=== PATIENT | male | born 1990 | race African-American/Black ===

== ENCOUNTER 2016-11-21 17:14 | Emergency (ER) | payer SELFPAY ==
[2016-11-21] MEDS ORDERED: IBUPROFEN 800 MG TABLET PO ONE (17:47)
--- NOTE | 2016-11-21 17:48 | ER Document Report ---
ED Medical Screen (RME) - General Chief Complaint: Laceration Stated Complaint: FINGER PAIN Time seen by provider: 17:47 Mode of Arrival: Ambulatory Information source: Patient Notes: 26-year-old male cut his right palmarto lateral proximal fifth finger middle phalanx on sheet metal today at 4:00. Tetanus is current I have greeted and performed a rapid initial assessment of this patient. A comprehensive ED assessment, evaluation of the patient, analysis of test results , and completion of the medical decision making process will be conducted by additional ED providers. TRAVEL OUTSIDE OF THE [place] IN LAST 30 DAYS: No - Related Data Allergies/Adverse Reactions: No Known Allergies Allergy (Unverified 12/10/14 12:14) Past Medical History - Immunizations Hx Diphtheria, Pertussis, Tetanus Vaccination: Yes Physical Exam - Vital signs Vitals: Temp Pulse Resp BP Pulse Ox 98.0 F 79 16 130/83 H 100 11/21/16 17:18 11/21/16 17:18 11/21/16 17:18 11/21/16 17:18 11/21/16 17:18 Course - Vital Signs Vital signs: Temp Pulse Resp BP Pulse Ox 98.0 F 79 16 130/83 H 100 11/21/16 17:18 11/21/16 17:18 11/21/16 17:18 11/21/16 17:18 11/21/16 17:18
[2016-11-21] MEDS ORDERED: BUPIVACAINE HCL 0.5 % INJ/PF 30 ML SDV INJ ONE (18:59)
[2016-11-21] MEDS ORDERED: CEPHALEXIN 500 MG CAPSULE PO ONE (19:00)
[2016-11-21] MEDS ORDERED: DIPH/PERTUSS(ACELL)/TETANUS VAC/PF 0.5 ML SYR (>=10YO) IM ONE (19:19)
--- NOTE | 2016-11-21 19:19 | ER Document Report ---
ED General - General Chief Complaint: Laceration Stated Complaint: FINGER PAIN Mode of Arrival: Ambulatory Information source: Patient Notes: 26-year-old male presents with complaints of laceration to the right hand fifth digit on the medial aspect just prior to arrival wide metal piece. Patient notes tenderness is not up-to-date. She does note numbness on the lateral aspect with lacerations located TRAVEL OUTSIDE OF THE [place] IN LAST 30 DAYS: No - HPI Onset: Just prior to arrival Onset/Duration: Sudden Quality of pain: Achy Severity: Mild Pain Level: 1 Associated symptoms: Other Exacerbated by: Movement Relieved by: Denies Similar symptoms previously: No Recently seen / treated by doctor: No - Related Data Allergies/Adverse Reactions: No Known Allergies Allergy (Unverified 12/10/14 12:14) Past Medical History - General Information source: Patient - Social History Smoking Status: Current Every Day Smoker Cigarette use (# per day): Yes Chew tobacco use (# tins/day): No Smoking Education Provided: No Family History: Reviewed & Not Pertinent Patient has suicidal ideation: No Patient has homicidal ideation: No Renal/ Medical History: Denies: Hx Peritoneal Dialysis - Immunizations Hx Diphtheria, Pertussis, Tetanus Vaccination: Yes Review of Systems - Review of Systems Notes: REVIEW OF SYSTEMS: CONSTITUTIONAL : Denies fever, chills, or sweats. Denies recent illness. EENT: Denies eye, ear, throat, or mouth pain or symptoms. Denies nasal or sinus congestion or discharge. Denies throat, tongue, or mouth swelling or difficulty swallowing. CARDIOVASCULAR: Denies chest pain. Denies palpitations or racing or irregular heart beat. Denies ankle edema. RESPIRATORY: Denies cough, cold, or chest congestion. Denies shortness of breath, difficulty breathing, or wheezing. GASTROINTESTINAL: Denies abdominal pain or distention. Denies nausea, vomiting , or diarrhea. Denies blood in vomitus, stools, or per rectum. Denies black, tarry stools. Denies constipation. GENITOURINARY: Denies difficulty urinating, painful urination, burning, frequency, blood in urine, or discharge. MUSCULOSKELETAL: Denies back or neck pain or stiffness. Denies joint pain or swelling. SKIN: Finger laceration HEMATOLOGIC : Denies easy bruising or bleeding. LYMPHATIC: Denies swollen, enlarged glands. NEUROLOGICAL: Denies confusion or altered mental status. Denies passing out or loss of consciousness. Denies dizziness or lightheadedness. Denies headache. Denies weakness or paralysis or loss of use of either side. Denies problems with gait or speech. Denies sensory loss, numbness, or tingling. Denies seizures. PSYCHIATRIC: Denies anxiety or stress. Denies depression, suicidal ideation, or homicidal ideation. ALL OTHER SYSTEMS REVIEWED AND NEGATIVE. Dictation was performed using [employer] voice recognition software PHYSICAL EXAMINATION: GENERAL: Well-appearing, well-nourished and in no acute distress. HEAD: Atraumatic, normocephalic. EYES: Pupils equal round and reactive to light, extraocular movements intact, sclera anicteric, conjunctiva are normal. ENT: Nares patent, oropharynx clear without exudates. Moist mucous membranes. NECK: Normal range of motion, supple without lymphadenopathy LUNGS: Breath sounds clear to auscultation bilaterally and equal. No wheezes rales or rhonchi. HEART: Regular rate and rhythm without murmurs ABDOMEN: Soft, nontender, nondistended abdomen. No guarding, no rebound. No masses appreciated. Musculoskeletal: Normal range of motion, no pitting or edema. No cyanosis. NEUROLOGICAL: Cranial nerves grossly intact. Normal speech, normal gait. Normal sensory, motor exams except for mild paresthesia on the medial aspect of the fifth digit PSYCH: Normal mood, normal affect. SKIN: Laceration noted of the medial aspect of the fifth digit at the proximal phalanx with no joint involvement patient is able to flex and extend at DIP and PIP Physical Exam - Vital signs Vitals: Temp Pulse Resp BP Pulse Ox 98.0 F 79 16 130/83 H 100 11/21/16 17:18 11/21/16 17:18 11/21/16 17:18 11/21/16 17:18 11/21/16 17:18 Course - Re-evaluation Re-evalutation: 11/21/16 21:53 area was anesthetized cleansed extensively, patient sutures were placed tetanus was updated patient was started on antibiotics and is otherwise stable for discharge After performing a Medical Screening Examination, I estimate there is LOW risk for OPEN FRACTURE, COMPARTMENT SYNDROME, TENDON RUPTURE, ACUTE NEUROVASCULAR INJURY, or RETAINED FOREIGN BODY, thus I consider the discharge disposition reasonable. Also, there is no evidence or peritonitis, sepsis, or toxicity. The patient and I have discussed the diagnosis and risks, and we agree with discharging home with close follow-up with the understanding that symptoms and presentations can change. We also discussed returning to the Emergency Department immediately if new or worsening symptoms occur. We have discussed the symptoms which are most concerning (e.g., changing or worsening pain, fever , numbness, weakness, cool or painful digits) that necessitate immediate return. 11/21/16 21:56 - Vital Signs Vital signs: Temp Pulse Resp BP Pulse Ox 98.0 F 79 16 130/83 H 100 11/21/16 17:18 11/21/16 17:18 11/21/16 17:18 11/21/16 17:18 11/21/16 17:18 Procedures - Immobilization Right 5th digit Time completed: 19:47 Pre-Proc Neuro Vasc Exam: Normal Immobilizer type: Finger splint (Static) Performed by: PCT Post-Proc Neuro Vasc Exam: Normal Alignment checked and good: Yes - Laceration/Wound Repair Right 5th digit Time completed: 19:00 Wound length (cm): 2 Wound's Depth, Shape: Superficial, Irregular, Flap Laceration pre-procedure: Sterile PPE donned, Sterile drapes applied, Shur- Clens applied Anesthetic type: 0.5% Bupivacaine Volume Anesthetic (mLs): 10 Wound explored: No foreign body removed, Contaminated Irrigated w/ Saline (mLs): 1,500 Wound Debrided: Extensive Wound Repaired With: Sutures Suture Size/Type: 5:0, Ethilon Number of Sutures: 4 Layer Closure?: No Post-procedure wound care: Sterile dressing applied, Splint applied Post-procedure NV exam normal: Yes Complications: No - Additional Procedures digital nerve block Time performed: 19:18 - using 10 cc of sensorciane .5% without epi with complete resolution of pain of the finger Discharge - Discharge Clinical Impression: Paresthesia Finger laceration Qualifiers: Encounter type: initial encounter Qualified Code(s): S61.219A - Laceration without foreign body of unspecified finger without damage to nail, initial encounter Condition: Stable Disposition: HOME, SELF-CARE Instructions: Laceration Care ([facility]) Additional Instructions: Follow-up in 7-10 days for removal of sutures or sooner if there is any other concerns please check for any signs of infection Prescriptions: Cephalexin Monohydrate [Keflex 500 mg Capsule] 500 mg PO QID #40 capsule Referrals: LYNDSAY RODARTE DO [ACTIVE STAFF] - Follow up in 3-5 days
[2016-11-21 22:06] VITALS: BP 134/94
== END 2016-11-21 20:00 | disposition home or self-care (01) ==
LOC: ER 17:14
PROC: 0HQFXZZ Repair Right Hand Skin, External Approach (ICD-10-PCS; principal; 2016-11-21)
DX: S61.210A Laceration without foreign body of right index finger without damage to nail, initial encounter (principal); W45.8XXA Other foreign body or object entering through skin, initial encounter; Y99.0 Civilian activity done for income or pay; R20.0 Anesthesia of skin; Z23 Encounter for immunization; F17.210 Nicotine dependence, cigarettes, uncomplicated
CPT/HCPCS: 90471; 99282

== ENCOUNTER 2020-04-16 23:11 | Emergency (ER) | payer SELFPAY ==
[2020-04-16] MEDS ORDERED: HYDROMORPHONE HCL INJ/PF 2 MG/ML AMPULE IV ONE (23:19)
[2020-04-16] MEDS ORDERED: CEFAZOLIN 2 GM/D5W RTU 2 GM/50 ML RTUPB IV ONE (23:20)
[2020-04-16] MEDS ORDERED: ONDANSETRON HCL INJ/PF 4 MG/2 ML SDV IV ONE (23:20)
[2020-04-16] MEDS ORDERED: LEVOFLOXACIN 750 MG TABLET PO ONE (23:21)
[2020-04-16] MEDS ORDERED: LIDOCAINE 2% INJ (20 MG/ML) 20 ML MDV INJ ONE (23:22)
--- NOTE | 2020-04-17 00:29 | RADIOLOGY REPORT (SQ) ---
CLINICAL INDICATION: foreign body. . TECHNIQUE: 2 view(s) were obtained of the left foot. COMPARISON: None. FINDINGS: No acute displaced fracture is identified of the foot. Alignment appears anatomic. Joint spaces are within normal limits for age. A radiopaque saw blade is identified in the dorsum of the foot overlying the first and second digit and second and third metatarsal heads. This does not convincingly traverse bone.. IMPRESSION: No evidence of acute displaced fracture of the foot. Foreign body, as described
[2020-04-17] MEDS ORDERED: HYDROCODONE/ACETAMINOPHEN 5-325 MG (6 TAB/ER DISP) PO PRN (00:31)
[2020-04-17 00:55] VITALS: BP 120/68
--- NOTE | 2020-04-17 04:00 | ER Document Report ---
Entered by CICI SANTIAGO SCRIBE 04/16/20 [id number] Acting as scribe for:COURTNEY RIVERA IV, MD ED Extremity Problem, Lower - General Chief Complaint: Foot Injury Stated Complaint: FOOT TRAUMA Primary Care Provider: RONDA SULLIVAN MD [ACTIVE STAFF] - 04/19/20 (Call Dr. Sullivan on 04/19/20 to arrange follow up appointment ) Mode of Arrival: Medic Information source: Patient, Emergency Med Personnel Notes: This 30 year old male patient brought in by EMS from home presents to the ED today with complaints of left foot injury that occurred just prior to arrival. Patient states that he was cutting wood with a saw and after he was done, he set it down and accidentally kicked it with his left foot, causing the blade to become stuck between his 1st and 2nd toe. He mentions that he was wearing water shoes at the time. EMS reports that the blade is approximately 1" deep at an angle between his toes and that the blade was stabilized with dressing at the scene. Patient reports 5/5 pain at this time, but denies any numbness or tingling in his toes. Tetanus is UTD within x3 years per patient. TRAVEL OUTSIDE OF THE [place] IN LAST 30 DAYS: No - Related Data Allergies/Adverse Reactions: No Known Allergies Allergy (Unverified 12/10/14 12:14) Past Medical History - General Information source: Patient - Social History Smoking Status: Unknown if Ever Smoked Smoking Education Provided: No Family History: Reviewed & Not Pertinent Patient has suicidal ideation: No Patient has homicidal ideation: No - Immunizations Hx Diphtheria, Pertussis, Tetanus Vaccination: Yes Review of Systems - Review of Systems Constitutional: No symptoms reported EENT: No symptoms reported Cardiovascular: No symptoms reported Respiratory: No symptoms reported Gastrointestinal: No symptoms reported Genitourinary: No symptoms reported Male Genitourinary: No symptoms reported Musculoskeletal: See HPI Skin: No symptoms reported Hematologic/Lymphatic: No symptoms reported Neurological/Psychological: See HPI. denies: Numbness, Tingling -: Yes All other systems reviewed and negative Physical Exam - Vital signs Vitals: Temp 98.3 F 04/16/20 23:17 - General General appearance: Alert In distress: None - HEENT Head: Normocephalic, Atraumatic Eyes: Normal Pupils: PERRL - Respiratory Respiratory status: No respiratory distress Chest status: Nontender Breath sounds: Normal Chest palpation: Normal - Cardiovascular Rhythm: Regular Heart sounds: Normal auscultation Murmur: No Friction rub: No Gallop: None auscultated Normal capillary refill: Yes - < 2 seconds in all digits of left foot - Abdominal Inspection: Normal Distension: No distension Bowel sounds: Normal Tenderness: Nontender - Abdomen soft Organomegaly: No organomegaly - Back Back: Normal, Nontender - Extremities General upper extremity: Normal inspection Foot: Other - Sawzall blade inserted proximally at the base of the 2nd toe of the left foot. Minimal bleeding with removal of blade. Sensation intact. Active ROM in all toes of left foot. - Neurological Neuro grossly intact: Yes Orientation: AAOx4 Colleen Coma Scale Eye Opening: Spontaneous [place]leen Coma Scale Verbal: Oriented [place]leen Coma Scale Motor: Obeys Commands [place] Coma Scale Total: 15 - Psychological Associated symptoms: Normal affect, Normal mood - Skin Skin Temperature: Warm Skin Moisture: Dry Skin Color: Normal Course - Re-evaluation Re-evalutation: 04/17/20 00:25 Results of ED MSE discussed with patient. Plan for follow-up discussed with patient. Plan of care discussed with patient. All questions were answered prior to discharge. Emergency signs and symptoms, reasons to return to emergency department discussed with patient. - Vital Signs Vital signs: Temp Pulse Resp BP Pulse Ox 98.3 F 92 14 135/74 H 99 04/16/20 23:20 04/16/20 23:20 04/16/20 23:20 04/16/20 23:20 04/16/20 23:20 - Diagnostic Test Radiology reviewed: Image reviewed - no bony injury or foreign body other than reciprocating saw blade seen on this md's read Procedures - Laceration/Wound Repair Left Dorsal Foot Time completed: 00:28 - reciprocating saw blade protruding from 1 cm laceration left foot Wound length (cm): 1 Wound's Depth, Shape: Superficial Laceration pre-procedure: Sterile PPE donned, Betadine prep applied Anesthetic type: 2% Lidocaine Volume Anesthetic (mLs): 5 Wound explored: Foreign body removed - distal 1 inch of reciprocating saw blade removed from wound Irrigated w/ Saline (mLs): 250 Wound Repaired With: Sutures Suture Size/Type: 3:0, Prolene Number of Sutures: 2 Layer Closure?: No Post-procedure wound care: Sterile dressing applied Post-procedure NV exam normal: Yes Complications: No Discharge - Discharge Clinical Impression: Laceration of left foot with foreign body Qualifiers: Encounter type: initial encounter Qualified Code(s): S91.322A - Laceration with foreign body, left foot, initial encounter Condition: Stable Disposition: HOME, SELF-CARE Instructions: Laceration Care ([facility]), Oral Narcotic Medication ([facility]) Additional Instructions: Return to the Emergency Department without delay if any worse. Be certain to follow up with Dr. Sullivan to re-examine your foot. follow up with your regular primary care provider or return to ER in 10 days for suture removal Return to the Emergency Department without delay if any worse. HOME CARE INSTRUCTIONS & INFORMATION: Thank you for choosing us for your medical needs. We hope you're satisfied with the care you received. After you leave, you must properly care for your problem and, at the same time, observe its progress. Any condition can change. Some illnesses can change rapidly over hours or days. If your condition worsens, return to the Emergency Department or see your physician promptly. ABOUT YOUR X-RAYS AND EKG'S: If you had an EKG or X-rays taken, they have been read by the Emergency Physician. The X-rays and EKG's will also be read by a Radiologist or Net Programmer Analyst within 24 hours. If discrepancies are noted, you will be notified by telephone. Please be certain the ED has a correct telephone number & address where you can be reached. Also, realize that some fractures or abnormalities do not show up on initial X-rays. If your symptoms continue, see your physician. ABOUT YOUR LABORATORY TEST: If you had laboratory tests, the results have been reviewed by the Emergency Physician. Some test results (for example cultures) may not be available for several days. You will be contacted if any test result shows you need additional treatment. Please be certain the ED has a correct telephone number and address where you can be reached. ABOUT YOUR MEDICATIONS: You will receive instructions on how to take your medicine on the prescription label you receive. Additional information may be provided by the Pharmacy. If you have questions afterwards, call the ED for clarification or further instructions. Some prescribed medications may cause drowsiness. Do not perform tasks such as driving a car or operating machinery without consulting your Pharmacist. If you feel you need a refill of pain medication, your condition will need re-evaluation. Please do not call for a refill of any medication. ABOUT YOUR SIGNATURE: Signature of this document acknowledges to followin. Understanding that you received emergency treatment and that you may be released before al medical problems are known or treated. Please be certain the ED has a correct phone number & address where you can be reached. 2. Acknowledgement that you will arrange for follow-up care as recommended. 3. Authorization for the Emergency Physician to provide information to your follow-up Physician in order to maximize your care. AT ANY TIME, IF YOUR SYMPTOMS CHANGE SIGNIFICANTLY OR WORSEN OR YOU DEVELOP NEW SYMPTOMS, RETURN TO THE EMERGENCY DEPARTMENT IMMEDIATELY FOR RE-EVALUATION. OUR GOAL IS TO PROVIDE EXCELLENT MEDICAL CARE! WE HOPE THAT WE HAVE MET YOUR EXPECTATIONS DURING YOUR EMERGENCY DEPARTMENT VISIT AND THAT YOU FEEL YOU HAVE RECEIVED EXCELLENT CARE! Prescriptions: Hydrocodone/Acetaminophen [[place] 5-325 mg Tablet] 1 tab PO Q6HP PRN #15 tablet PRN Reason: pain Sulfamethoxazole/Trimethoprim [Bactrim Ds Tablet] 1 each PO BID 10 Days #20 tablet Levofloxacin [Levaquin 750 mg Tablet] 750 mg PO DAILY 4 Days #4 tablet Referrals: RONDA SULLIVAN MD [ACTIVE STAFF] - 04/19/20 (Call Dr. Sullivan on 04/19/20 to arrange follow up appointment ) I personally performed the services described in the documentation, reviewed and edited the documentation which was dictated to the scribe in my presence, and it accurately records my words and actions.
== END 2020-04-17 00:55 | disposition home or self-care (01) ==
LOC: ER 23:11
DX: S91.322A Laceration with foreign body, left foot, initial encounter (principal); W29.8XXA Contact with other powered hand tools and household machinery, initial encounter; Y93.89 Activity, other specified
CPT/HCPCS: 99284; 96375; 96365; 73620; 12001; J3490; J1170; J2405; J0690